=== PATIENT | female | born 1985 | race African-American/Black ===

== ENCOUNTER 2017-05-17 09:54 | Emergency (ER) | payer OTHER ==
[~2017-05-17] VITALS: Ht 180.3 cm; Wt 109.1 kg
--- NOTE | ~2017-05-17 | CR72 ---
[facility] A Service of [facility] RADIOLOGY TEXT RESULTS PATIENT: GULSHAN REILLY LOCATION: [facility] : 85 UNIT #: [id number] AGE: [address]: Nabeel Carson MD SEX: F ORDER DR: [id number] [facility] [address] [place], [place] [address] [id number] E MR#: [id number] Acc #: [id number] NAME: GULSHAN REILLY : 1985 SEX: F STUDY DATE/TIME: 05/17/2017 10:25 UNIT: [facility] ROOM: STUDY DESCRIPTION: CR Chest Single View Portable Attending Physician: Nabeel Carson M.D. Ordering Physician: Nabeel Carson M.D. Primary Care Physician: Primary Care Physician No MEDICAL IMAGING REPORT This report is preliminary unless electronic signature is present EXAM Portable chest 05/17 INDICATIONS Cough and shortness of air started yesterday. History of hypertension. FINDINGS AP portable chest was obtained. Prior study is unavailable due to a problem with the archive. There is mild cardiomegaly. Lungs are clear. No pneumothorax. IMPRESSION Prior films unavailable. Mild cardiomegaly. No acute findings. Dictated by... Nabeel Mancera Jr., M.D. THIS IS AN ELECTRONICALLY VERIFIED REPORT Nabeel Mancera Jr., M.D. at 05/18/2017 2:13 PM DIEGO/segundo TD: 05/17/2017 15:14 JOB #: [id number] MEDICAL IMAGING REPORT Page 1 of 1 COPY
[~2017-05-17 09:54] MED LIST: FEOSOL PO; ULTRAM PO
== END 2017-05-17 10:59 | disposition home or self-care (01) ==
LOC: CED 09:54
DX: J44.1 Chronic obstructive pulmonary disease with (acute) exacerbation (principal); F17.200 Nicotine dependence, unspecified, uncomplicated
CPT/HCPCS: 71010; 94640; 99285